=== PATIENT | female | born 1995 | race African-American/Black ===

== ENCOUNTER 2019-01-02 12:54 | Emergency (ER) | payer MEDICAID ==
[~2019-01-02] VITALS: Ht 180.3 cm; Wt 62.0 kg
[2019-01-02] MEDS ORDERED: IBUPROFEN 600MG TABLET PO ONE (16:45)
[2019-01-02 18:49] VITALS: BP 124/79
== END 2019-01-02 18:49 | disposition home or self-care (01) ==
LOC: ER 12:54
DX: S40.012A Contusion of left shoulder, initial encounter (principal); M76.62 Achilles tendinitis, left leg; V49.9XXA Car occupant (driver) (passenger) injured in unspecified traffic accident, initial encounter; Y93.89 Activity, other specified; Y92.89 Other specified places as the place of occurrence of the external cause; Y99.8 Other external cause status
CPT/HCPCS: 73030; 99283